=== PATIENT | female | born 1975 | race Hispanic/Latino ===

== ENCOUNTER 2023-04-05 07:04 | Day surgery (SDC) | payer BC ==
[2023-04-02 08:08] LABS: BASOPHILS # (AUTO) 0.02 K/uL (0.00-0.20); BASOPHILS % (AUTO) 0.3 % (0.0-5.0); EOSINOPHILS # (AUTO) 0.06 K/uL (0.00-0.70); EOSINOPHILS % (AUTO) 0.8 % (0.0-8.0); HEMATOCRIT 42.2 % (36-48); IMMATURE GRANULOCYTE ABSOLUTE 0.03 K/uL (0-1); LYMPHOCYTES # (AUTO) 2.2 K/uL (1.0-4.8); LYMPHOCYTES % (AUTO) 29.6 % (21.0-51.0); MEAN CORPUSCULAR HEMOGLOBIN 28.2 pg (27.0-33.0); MEAN CORPUSCULAR HGB CONC 32.2 g/dL (32.0-36.0); MEAN CORPUSCULAR VOLUME 87.6 fL (79-99); MONOCYTES # (AUTO) 0.5 K/uL (0.1-1.0); MONOCYTES % (AUTO) 6.2 % (3.0-13.0); NEUTROPHILS # (AUTO) 4.6 K/uL (1.8-7.7); NEUTROPHILS % (AUTO) 62.7 % (40.0-77.0); PLATELET COUNT (AUTO) 346 K/uL (130-400); RED BLOOD CELL COUNT(AUTO) 4.82 MIL/uL (4.00-5.50); WHITE BLOOD COUNT (AUTO) 7.3 K/uL (4.8-10.8)
[2023-04-02 08:31] LABS: ALBUMIN 3.4 g/dL (3.5-5.0); BILIRUBIN,TOTAL 0.5 mg/dL (0.2-1.0); CREATININE 0.6 mg/dL (0.5-1.5); POTASSIUM 4.1 mmol/L (3.5-5.1)
[2023-04-02 08:55] VITALS: BP 134/73; PULSE 64; RESP 16
[2023-04-05] VITALS (16 sets, daily range): BP systolic 135–158; BP diastolic 66–86; PULSE 59–75; RESP 11–18
[~2023-04-05] VITALS: Ht 157.5 cm; Wt 84.3 kg
[~2023-04-05 07:04] MED LIST: OMEP40CA21 PO
[2023-04-05] MEDS ORDERED: LACTATED RINGERS 1000ML 1,000 ML IV ONE (08:07)
[2023-04-05] MEDS ORDERED: IOHEXOL-350 50ML VIAL IV ONE (08:13)
[2023-04-05] MEDS: CEFAZOLIN SODIUM 2 GM VIAL ONE ×2 (09:03→16:00)
[2023-04-05] MEDS ORDERED: BUPIVACAINE/PF 0.5% 30ML VIAL ONE (10:41)
[2023-04-05] MEDS ORDERED: BUPIVACAINE/EPI/PF 0.5% 30ML VIAL IJ ONE ×2 (12:00→16:20)
[2023-04-05] MEDS ORDERED: PROPOFOL 10 MG/ML 20ML VIAL IV ONE (15:35)
[2023-04-05] MEDS ORDERED: MIDAZOLAM HCL 1 MG/ML 2ML VIAL ONE (15:36)
[2023-04-05] MEDS ORDERED: FENTANYL CITRATE PF 50 MCG/1 ML 2ML VIAL ONE ×3 (15:36→17:40)
[2023-04-05] MEDS ORDERED: ROCURONIUM 10MG/1ML SYR 10 MG/ML ML ONE (15:36)
[2023-04-05] MEDS ORDERED: ONDANSETRON 4MG INJ ONE (15:37)
[2023-04-05] MEDS ORDERED: MEPERIDINE-PF 25 MG/ML SYG ONE ×3 (16:10→18:24)
[2023-04-05] MEDS ORDERED: DEXAMETHASONE SOD PHOSPHATE 10MG/ML 1ML VIAL ONE (16:15)
[2023-04-05] MEDS ORDERED: NEOSTIGMINE METHYLSULFATE 1MG/ML IV ONE (17:19)
[2023-04-05] MEDS ORDERED: GLYCOPYRROLATE 1 MG/5 ML SYRINGE ONE (17:19)
[2023-04-05] MEDS ORDERED: KETOROLAC 30MG VIAL (30MG/ML) ONE (17:21)
== END 2023-04-05 19:45 | disposition home or self-care (01) ==
LOC: DAH 07:04
PROVIDERS: ATTEND Surgery
DX: K80.10 Calculus of gallbladder with chronic cholecystitis without obstruction (principal); K21.9 Gastro-esophageal reflux disease without esophagitis; K82.8 Other specified diseases of gallbladder
CPT/HCPCS: 80053; 84703; 85025; 86850 ×2; 86900 ×2; 86901 ×2; 36415 ×2; 93005; 47563; 88304; 74300; A6260; A4663; J7030; J7120 ×2; C1758; J3010 ×3; J3490 ×2; J1100; J2250; J2704; J2405; J1885; J2710; J0665; J2175 ×3; Q9967; J0690; A4649 ×3; A4215; A4223; A4222; A4221; A4600; G0168